=== PATIENT | female | born 1990 | race Hispanic/Latino ===

== ENCOUNTER 2018-08-10 12:29 | Emergency (ER) | payer MEDICAID ==
[2018-08-10 13:51] LABS: APPEARANCE,URINE CLOUDY (CLEAR); BILIRUBIN,URINE NEGATIVE (NEGATIVE); COLOR,URINE YELLOW (YELLOW); GLUCOSE, URINE (UA) NEGATIVE (NEGATIVE); KETONES,URINE 5 mg/dL (NEGATIVE); LEUKOCYTE ESTERASE ,URINE MODERATE (NEGATIVE); NITRATE,URINE POSITIVE (NEGATIVE); OCCULT BLOOD,URINE MODERATE (NEGATIVE); PROTEIN,URINE NEGATIVE (NEGATIVE); UROBILINOGEN,URINE 0.2 mg/dL (0.2-1.0)
[2018-08-10 13:58] LABS: HCG,QUAL RESULT NEGATIVE (NEGATIVE)
[2018-08-10 14:00] LABS: BACTERIA,URINE Many /HPF (None Seen); SQUAMOUS EPITHELIAL CELL,UR Few /HPF (0-2)
[2018-08-10] MEDS ORDERED: ORPHENADRINE CITRATE 30 MG/ML ML ONE (15:11)
[2018-08-10] MEDS ORDERED: PREDNISONE 20 MG TABLET ONE (15:11)
[2018-08-10] MEDS ORDERED: CEFTRIAXONE SODIUM 1 GM ONE (15:43)
== END 2018-08-10 16:10 | disposition home or self-care (01) ==
LOC: EDH 12:29
DX: M54.42 Lumbago with sciatica, left side (principal); N30.90 Cystitis, unspecified without hematuria; M79.605 Pain in left leg
CPT/HCPCS: 72131; 81001; 81025; 96372 ×2; 99284; J0696; J2360